=== PATIENT | male | born 2000 | race African-American/Black ===

== ENCOUNTER 2021-12-24 22:14 | Emergency (ER) | payer MEDICAID, OTHER ==
[~2021-12-24] VITALS: Ht 180.3 cm; Wt 59.1 kg
[~2021-12-24 22:14] MED LIST: BENZ2AMP4 IJ; DESMOPRESSIN; LITH8SOL PO; OLAN10TA5 PO; OLAN5TAB99 PO; PRAZ2CAP2 PO
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
[2021-12-24] MEDS ORDERED: ACETAMINOPHEN 325 MG TABLET. PO ONE (23:30)
[2021-12-24] MEDS ORDERED: IBUPROFEN 200 MG TABLET. PO ONE (23:30)
--- NOTE | 2021-12-24 23:39 | RAD ---
Exam: Right elbow 3 views INDICATION: Elbow pain after fall TECHNIQUE: Frontal, lateral and oblique views of the right elbow Comparisons: None FINDINGS: Bone mineralization is normal. No acute or healed fractures. Soft tissues are unremarkable. Joint spa cristina are well-maintained. IMPRESSION: No acute osseous abnormality Electronically signed by: Trevon Cedeño MD (12/24/2021 11:37 PM) [facility]
[2021-12-25 09:15] VITALS: BP 96/52
== END 2021-12-25 10:08 | disposition home or self-care (01) ==
LOC: ER 22:14
DX: S50.01XA Contusion of right elbow, initial encounter (principal); F90.9 Attention-deficit hyperactivity disorder, unspecified type; F84.0 Autistic disorder; W18.39XA Other fall on same level, initial encounter; Y93.89 Activity, other specified; Y92.89 Other specified places as the place of occurrence of the external cause; Y99.8 Other external cause status
CPT/HCPCS: 73080; 99284; 99285